=== PATIENT | female | born 1950 ===

== ENCOUNTER 2025-01-31 07:00 | Day surgery (SDC) | payer OTHER ==
[2025-01-31] MEDS ORDERED: fentaNYL CITRATE 50 MCG/ML AMPUL IV PUSH ONE (11:00)
[2025-01-31] MEDS ORDERED: DIPHENHYDRAMINE HCL 50 MG/ML VIAL 1ML IV ONE (11:00)
[2025-01-31] MEDS ORDERED: MIDAZOLAM HCL 2 MG/2 ML VIAL IV ONE (11:00)
== END 2025-01-31 12:05 | disposition home or self-care (01) ==
LOC: AMB-ENDOS 07:00 → CIR.AMB 13:45
PROVIDERS: ATTEND Surgery
DX: D12.4 Benign neoplasm of descending colon (principal); D12.5 Benign neoplasm of sigmoid colon; K63.5 Polyp of colon; K57.30 Diverticulosis of large intestine without perforation or abscess without bleeding